=== PATIENT | female | born 1985 | race Caucasian/White ===

== ENCOUNTER 2019-11-10 14:48 | Inpatient (IN) ==
[2019-11-10] MEDS ORDERED: NICODERM PATCH TD PRN (19:55)
[2019-11-10] MEDS ORDERED: DULCOLAX PR PRN (19:55)
[2019-11-10] MEDS ORDERED: NICOTINE GUM BUCCAL PRN (19:55)
[2019-11-10] MEDS ORDERED: MAALOX PLUS LIQUID PO PRN (19:55)
[2019-11-10] MEDS ORDERED: SENOKOT PO PRN (19:55)
[2019-11-10] MEDS ORDERED: PHENOBARBITAL IV PRN (19:55)
[2019-11-10] MEDS ORDERED: D5W 1,000 ML IV PRN (19:55)
[2019-11-10] MEDS ORDERED: MOTRIN PO PRN (19:55)
[2019-11-10] MEDS ORDERED: DESYREL PO PRN (19:55)
[2019-11-10] MEDS ORDERED: ZOFRAN IV PRN (19:55)
[2019-11-10] MEDS ORDERED: ZOFRAN ODT PO PRN (19:55)
[2019-11-10] MEDS ORDERED: IMODIUM PO PRN ×2 (19:55)
[2019-11-10] MEDS ORDERED: TUBERSOL ID ONE (19:55)
[2019-11-10] MEDS ORDERED: TYLENOL PO PRN (19:55)
[2019-11-10] MEDS ORDERED: ZOFRAN IM PRN (19:55)
[2019-11-10 20:35] LABS: HEMATOCRIT 38.7 % (37.0-47.0); HEMOGLOBIN 12.1 g/dL (12.0-16.0); MCHC 31.3 g/dL (33-37); MCV 86.4 FL (81-99); MPV 9.5 FL (7.4-10.4); RBC 4.48 XMIL (4.2-5.4); RDW 13.2 % (11.5-14.5); WBC 13.34 X1000 (4.8-10.8)
[2019-11-10 20:51] LABS: AGAP 11; ALBUMIN 3.8 g/dL (3.5-5.0); ALKALINE PHOSPHATASE 101 U/L (32-104); AMYLASE 70 U/L (20-200); BUN 12 mg/dL (8-22); CHLORIDE 102 mmol/L (98-107); COSMO 273; CREATININE 0.9 mg/dL (0.5-0.9); ESTIMATED GFR > 60; GLUCOSE 89 mg/dL (70-104); GOT 17 U/L (10-30); GPT 10 U/L (10-36); LIPASE 75 U/L (13-60); POTASSIUM 3.5 mmol/L (3.5-5.1); SODIUM 137 mmol/L (136-145); TCO2 24 mmol/L (25-35); TOTAL BILIRUBIN < 0.15 mg/dL (0.20-1.00); TOTAL PROTEIN 7.1 g/dL (6.3-8.3)
[2019-11-10 20:53] LABS: INR 0.91; PROTIME 12.7 Seconds (11.0-16.0)
[2019-11-11 02:16] LABS: URINE SOURCE CLEAN CATCH
[2019-11-11 02:23] LABS: BILIRUBIN URINE NEGATIVE (NEGATIVE); BLOOD URINE NEGATIVE (NEGATIVE); COLOR YELLOW; GLUCOSE URINE NEGATIVE (NEGATIVE); KETONE URINE NEGATIVE (NEGATIVE); LEUKOCYTES URINE NEGATIVE (NEGATIVE); NITRITE URINE NEGATIVE (NEGATIVE); PH URINE 6.5; PROTEIN URINE TRACE mg/dL (NEGATIVE); SP GRAVITY URINE 1.024; TURBIDITY URINE CLEAR (CLEAR); UROBILINOGEN URINE NORMAL (NORMAL)
[2019-11-11 02:24] LABS: UR EPITHELIAL CELLS <10 /HPF (<10); URINE BACTERIA NEGATIVE /HPF; URINE WBC <10 /HPF (<10)
[2019-11-11 02:42] LABS: UR AMPHETAMINES QUAL NONE DETECTED (NONE DETECT); UR BARBITUATES QUAL NONE DETECTED (NONE DETECT); UR BENZODIAZEPIN QUAL NONE DETECTED (NONE DETECT); UR CANNABINOIDS QUAL PRESUMPTIVE POSITIVE (NONE DETECT); UR COCAINE QUAL NONE DETECTED (NONE DETECT); UR METHADONE QUAL NONE DETECTED (NONE DETECT); UR METHAMPHETAMINE QUAL NONE DETECTED (NONE DETECT); UR OPIATES QUAL NONE DETECTED (NONE DETECT); UR OXYCODONE QUAL NONE DETECTED (NONE DETECT); UR PCP QUAL PRESUMPTIVE POSITIVE (NONE DETECT); UR PROPOXYPHENE QUAL NONE DETECTED (NONE DETECT); UR TCA QUAL PRESUMPTIVE POSITIVE (NONE DETECT)
[2019-11-11] MEDS: PROTONIX PO SCH ×2 (05:51→06:48)
[2019-11-11] MEDS ORDERED: ROBAXIN PO PRN (07:02)
[2019-11-11] MEDS ORDERED: SALINE LOCK IV FLUID XX ONE (07:02)
[2019-11-11] MEDS ORDERED: BENTYL PO PRN (07:02)
[2019-11-11] MEDS ORDERED: ATARAX PO PRN (07:02)
[2019-11-11] MEDS: LIBRIUM PO SCH ×3 (08:39→18:34)
[2019-11-11] MEDS: FOLIC ACID PO SCH (08:41)
[2019-11-11] MEDS: THERA M PLUS PO SCH (08:42)
[2019-11-11] MEDS: TRILEPTAL PO SCH ×2 (08:42→21:59)
[2019-11-11] MEDS: VITAMIN B-1 PO SCH (08:42)
[2019-11-11] MEDS ORDERED: M.V.I.-12 10 ML, FOLIC ACID 1 MG, MAGNESIUM SULFATE 1 GM, THIAMINE 100 MG in NS 1,000 ML IV ONE (09:00)
[2019-11-11] MEDS: LUVOX PO SCH ×2 (12:25→22:00)
--- NOTE | 2019-11-11 14:23 | PROGRESS NOTE ---
DATE: 11/11/2019 SUBJECTIVE: Patient has no current new complaints. States that overall is feeling a little bit better. OBJECTIVE: Temperature is 97.7 degrees, pulse 79, respiratory rate 18, BP 109/63.General: Patient is awake. Currently she is in no distress, feeling okay. Tremors seem to be improving. HEENT: Normocephalic. Neck: Supple. Cardiovascular: Regular rate. Chest: Clear. Abdomen: Soft. Extremities: Moves all extremities. Neurologic: No changes. ASSESSMENT: 1. Nausea and vomiting. 2. Abdominal pain. 3. Myalgias. 4. Paresthesias. 5. Paroxysmal sweating. 6. Bipolar. 7. Alcohol abuse withdrawal and stabilization. PLAN: We will continue high-dose Librium taper. Continue to follow. Continue counseling. Further orders cc: Shawn Gleason MD MTDD
--- NOTE | 2019-11-11 19:53 | HISTORY AND PHYSICAL ---
CHIEF COMPLAINT: Nausea. HISTORY OF PRESENT ILLNESS: The patient is a 34-year-old female who presented to [facility] secondary to nausea, vomiting, and tremors. Notes that she has been drinking heavily and has been trying to stop, but her withdrawal symptoms have become too severe. SOCIAL HISTORY: She is , unemployed. Lives at home in [place]. PAST MEDICAL HISTORY: Significant for bipolar depression and chronic anxiety, and she does have a history of opiate and alcohol abuse. MEDICATIONS: Trileptal 300, Luvox 250, Seroquel 100, Nuvigil 250, Vyvanse, hydroxyzine. ALLERGIES: No known drug allergies. REVIEW OF SYSTEMS: CIWA score is 31 secondary to moderate tremors, myalgias, paresthesias, paroxysmal sweating, sensitivity to light, and skin paresthesias. Denies any fevers, chills, cough, or congestion. Denies dysuria, frequency, or urgency. Was recently in [facility] with suicidal ideations for 6 days. Currently states she is not suicidal. SUBSTANCE ABUSE HISTORY: The patient was in [place] outpatient for 2 weeks in July for opiates. Notes that she has been drinking heavily, although she was sober from 2012 to 2018 and states that alcohol has caused relationship problems and financial problems. Stated that once she has stopped opiates, she starts drinking again. Started drinking at 16. Had been using daily and heavily from 2009 to 2012, and then was sober until she went into rehab for opiates in 2019. Since then, she has been drinking half a pint of vodka daily. FAMILY HISTORY: Noncontributory. PHYSICAL EXAMINATION: VITAL SIGNS: Reviewed and stable. GENERAL: Patient is awake and alert. She is pleasant. She is in no acute distress. HEENT: Normocephalic. NECK: Supple. CARDIOVASCULAR: Regular rate. No murmurs. CHEST: Clear, nonlabored. ABDOMEN: Soft, nondistended. EXTREMITIES: Moves all extremities. NEUROLOGIC: No focal changes identified. SKIN: Warm, dry. No rashes. LABS: Pending. ASSESSMENT: 1. Nausea and vomiting. 2. Abdominal pain. 3. Myalgias. 4. Paresthesias. 5. Paroxysmal sweating. 6. Chronic anxiety and depression, bipolar. 7. Alcohol abuse withdrawal and stabilization. PLAN: We are going to admit patient to the hospital, place her on high-dose Librium taper and continue counseling. Further orders as needed. We will follow her symptomatically. cc: Shawn Gleason MD
[2019-11-11] MEDS: SEROQUEL PO PRN (21:58)
[2019-11-12] MEDS: LIBRIUM PO SCH ×6 (02:07→16:50)
[2019-11-12] MEDS: PROTONIX PO SCH (06:30)
[2019-11-12] MEDS: FOLIC ACID PO SCH (09:47)
[2019-11-12] MEDS: THERA M PLUS PO SCH (09:47)
[2019-11-12] MEDS: VITAMIN B-1 PO SCH (09:47)
[2019-11-12] MEDS: TRILEPTAL PO SCH ×2 (09:47→21:24)
[2019-11-12] MEDS: LUVOX PO SCH ×2 (09:47→21:24)
--- NOTE | 2019-11-12 16:41 | PROGRESS NOTE ---
DATE: 11/12/2019 SUBJECTIVE: Patient notes that she is feeling a lot better although still very sleepy and fatigued, denies any chest pain, palpitations. PHYSICAL: Vital Signs: Reviewed. Temperature 98 degrees, pulse 87, respiratory rate 18, BP 113/63. General: Patient is in no current respiratory distress. HEENT: Normocephalic. Neck: Supple. CV: Regular rate. Chest: Clear. Abdomen: Soft. Extremities: Moves all extremities. ASSESSMENT: 1. Nausea, vomiting. 2. Abdominal pain. 3. Myalgias. 4. Paresthesias. 5. Paroxysmal sweating. 6. Alcohol abuse, withdrawal and stabilization. 7. Chronic bipolar. PLAN: We are going to attempt to decrease her Librium to 25 t.i.d. today. If she tolerates we can decrease to b.i.d. tomorrow and hopefully once daily on Wednesday. She is planning to go to further inpatient treatment once she is totally off Librium. cc: Shawn Gleason MD
[2019-11-12] MEDS: SEROQUEL PO PRN (21:24)
[2019-11-13] MEDS: PROTONIX PO SCH (06:13)
[2019-11-13] MEDS ORDERED: LIBRIUM PO SCH ×2 (09:00)
[2019-11-13] MEDS: VITAMIN B-1 PO SCH (09:35)
[2019-11-13] MEDS: NUVIGIL PO SCH (09:35)
[2019-11-13] MEDS: THERA M PLUS PO SCH (09:36)
[2019-11-13] MEDS: TRILEPTAL PO SCH ×2 (09:36→20:39)
[2019-11-13] MEDS: LUVOX PO SCH ×2 (09:36→20:38)
[2019-11-13] MEDS: FOLIC ACID PO SCH (09:37)
[2019-11-13] MEDS: LIBRIUM PO SCH ×2 (10:12→20:38)
--- NOTE | 2019-11-13 19:24 | PROGRESS NOTE ---
DATE: 11/13/2019 SUBJECTIVE: The patient notes she feels a lot better today. She is still weak, tired, and fatigued. She has not really been out of bed. Asking to restart her Nuvigil. PHYSICAL EXAMINATION: Vital Signs: Reviewed. She is awake, alert, oriented. She is in no current respiratory distress. Temperature 98 degrees, pulse 77, BP 110/63. HEENT: Normocephalic. Neck: Supple. Cardiovascular: Regular rate. Chest: Clear. Abdomen: Soft. Extremities: Moves all extremities. Neurologic: No changes. ASSESSMENT: 1. Nausea and vomiting. 2. Abdominal pain. 3. Myalgias. 4. Tremors. 5. Paresthesias. 6. Daytime sleepiness. 7. Alcohol abuse, withdrawal and stabilization. PLAN: We are going to continue the patient on hospital today. Decrease Librium to 20 b.i.d. If she continues to tolerate it, we can change her over to 20 daily tomorrow and hopefully discharge home. cc: Shawn Gleason MD
[2019-11-13] MEDS: SEROQUEL PO PRN (20:42)
[2019-11-14] MEDS: PROTONIX PO SCH (06:04)
[2019-11-14 06:08] VITALS: BP 127/73
[2019-11-14] MEDS ORDERED: REVIA PO SCH (09:00)
[2019-11-14] MEDS: FOLIC ACID PO SCH (09:41)
[2019-11-14] MEDS: NUVIGIL PO SCH (09:41)
[2019-11-14] MEDS: TRILEPTAL PO SCH (09:42)
[2019-11-14] MEDS: LIBRIUM PO SCH (09:42)
[2019-11-14] MEDS: THERA M PLUS PO SCH (09:42)
[2019-11-14] MEDS: LUVOX PO SCH (09:42)
[2019-11-14] MEDS: VITAMIN B-1 PO SCH (09:43)
--- NOTE | 2019-11-15 16:02 | DISCHARGE SUMMARY ---
ADMISSION DATE: 11/10/2019 DISCHARGE DATE: 11/14/2019 DISCHARGE DIAGNOSES: 1. Nausea and vomiting. 2. Abdominal pain. 3. Myalgias. 4. Paresthesias. 5. Paroxysmal sweating. 6. Tremors. 7. Alcohol abuse withdrawal and stabilization. CONSULTATIONS: None. PROCEDURES: None. BRIEF HOSPITAL COURSE: The patient is a 34-year-old female who presented to [facility] program secondary to nausea, vomiting, and abdominal pain. She does have a known history of bipolar. She presented with significant alcohol withdrawal symptoms. She was placed in the hospital on high-dose Librium taper. We did slowly restart her other home medications prior to discharge. On discharge, she is awake and alert. She is in no distress. She is tolerating naltrexone. We will continue to follow with further orders as needed. DISPOSITION: Patient will be discharged to further rehab on naltrexone as well as her other nonnarcotic medications for her bipolar. Discussed with patient greater than 30 minutes that she needs to avoid all persons, places, situations which she has been using and abusing in the past. She needs outpatient counseling as well as drug counseling when she gets released from rehab. Discussed that she needs a sponsor, etc. cc: Shawn Gleason MD
== END 2019-11-14 10:40 | disposition home or self-care (01) | DRG 897 ==
LOC: P.MEDSURG 18:54
PROVIDERS: ADMIT Family Medicine; ATTEND Family Medicine